=== PATIENT | female | born 1930 | race African-American/Black ===

== ENCOUNTER 2019-07-27 08:47 | Emergency (ER) | payer MEDICARE, BC ==
[~2019-07-27] VITALS: Ht 167.6 cm; Wt 63.5 kg
[~2019-07-27 08:47] MED LIST: ASPI325T8 PO; HYDR-2145 PO; HYDR-3135 PO; LOVA40TA2 PO; METO50TA6 PO; OMEP20CA16 PO
[2019-07-27] MEDS ORDERED: fentaNYL PF VIAL 100 MCG/2 ML VIAL IV ONE (09:30)
[2019-07-27] MEDS ORDERED: ACETAMINOPHEN 500 MG TABLET PO ONE (09:30)
[2019-07-27] MEDS ORDERED: IV NORMAL SALINE 500ML BAG 500 ML IV ONE (09:30)
[2019-07-27 09:38] LABS: BASO # 0.1 x10^3/uL (0.0-0.2); BASO % 1 % (0-3); EOS % 0 % (0-3); HEMATOCRIT 35.5 % (36.0-47.0); HEMOGLOBIN 11.8 g/dL (12.0-15.5); LYMPH # 0.9 x10^3/uL (1.0-4.8); LYMPH % 10 % (24-48); MEAN CORPUSCULAR HEMOGLOBIN 29 pg (25-35); MEAN CORPUSCULAR HGB CONC 33 g/dL (31-37); MEAN CORPUSCULAR VOLUME 88 fL (79-100); MONO # 1.2 x10^3/uL (0.0-1.1); MONO % 13 % (0-9); NEUT # 7.1 x10^3/uL (1.8-7.7); NEUT % 76 % (31-73); PLATELET COUNT 304 x10^3/uL (140-400); RED BLOOD COUNT 4.05 x10^6/uL (3.50-5.40); WHITE BLOOD COUNT 9.3 x10^3/uL (4.0-11.0)
--- NOTE | 2019-07-27 09:42 | PHYS DOC ---
Past Medical History Past Medical History: GERD, High Cholesterol, Hypertension Past Surgical History: Hip Replacement, Knee Replacement Additional Past Surgical Histo: hernia, knee replacement Alcohol Use: None Drug Use: None Adult General Chief Complaint Chief Complaint: Neck Pain HPI HPI Patient is a 88 year old female with a history of hypertension presenting with neck pain for the last 3 days it started on Friday described as a stiffness no trauma radiates to bilateral shoulder blades denies chest pain occasional cough did have a headache earlier on the weekend but does not have one now. Feels warm to the touch denies fever that she knows of no vomiting denies diarrhea normal urination normal bowel movement she tells me. She takes omeprazole she has been getting around okay. Review of Systems Review of Systems Constitutional: Eyes: Cardiovascular: No additional information not addressed in HPI [] GI: Denies abdominal pain, nausea, vomiting, bloody stools or diarrhea [] : Denies dysuria or hematuria [] Musculoskeletal: Integument: Denies rash or skin lesions [] Neurologic: Endocrine: Denies polyuria or polydipsia [] All other systems were reviewed and found to be within normal limits, except as documented in this note. Current Medications Current Medications Current Medications Medications (Trade) Dose Ordered Sig/Marla Start Time Stop Time Status Last Admin Dose Admin Acetaminophen (Tylenol) 1,000 mg 1X ONCE 07/27/19 09:30 07/27/19 09:31 DC 07/27/19 09:50 1,000 MG Fentanyl Citrate (Fentanyl 2ml Vial) 50 mcg 1X ONCE 07/27/19 09:30 07/27/19 09:31 DC 07/27/19 09:50 50 MCG Morphine Sulfate (Morphine Sulfate) 4 mg 1X ONCE 07/27/19 11:00 07/27/19 11:01 DC 07/27/19 11:18 4 MG Sodium Chloride 500 ml @ 500 mls/hr 1X ONCE 07/27/19 09:30 07/27/19 10:29 DC 07/27/19 09:48 500 MLS/HR Allergies Allergies Allergies Coded Allergies Type Severity Reaction Last Updated Verified No Known Drug Allergies 03/28/14 No Physical Exam Physical Exam Constitutional: Well developed, well nourished, no acute distress, non-toxic appearance. [] HENT: Normocephalic, atraumatic, bilateral external ears normal, oropharynx moist, no oral exudates, nose normal. [] Eyes: PERRLA, EOMI, conjunctiva normal, no discharge. Neck: mild stiffness but no reproducible ttp noted. no true nuchal rigidity there is some tightness noted of the trapezius muscles l greater than right. cv: mild tachy no murmur Lungs & Thorax: Bilateral breath sounds clear to auscultation [] Abdomen: Bowel sounds normal, soft, no tenderness, no masses, no pulsatile masses. [] Skin: Warm, dry, no erythema, no rash. [] Back:b/l ttp noted at the scapula areas. Extremities: No tenderness, no cyanosis, no clubbing, ROM intact, no edema. [] Neurologic: Alert and oriented X 3, normal motor function, normal sensory function, no focal deficits noted. [] Psychologic: Affect normal, judgement normal, mood normal. [] Current Patient Data Vital Signs Vital Signs Date Time Temp Pulse Resp B/P (MAP) Pulse Ox O2 Delivery O2 Flow Rate FiO2 07/27/19 11:27 104 20 147/79 (101) 99 Room Air 07/27/19 10:57 100.3 100.3 t 100.9 Lab Values Laboratory Tests Test 07/27/19 08:23 07/27/19 08:25 07/27/19 08:30 07/27/19 10:20 White Blood Count 9.3 x10^3/uL (4.0-11.0) Red Blood Count 4.05 x10^6/uL (3.50-5.40) Hemoglobin 11.8 g/dL (12.0-15.5) L Hematocrit 35.5 % (36.0-47.0) L Mean Corpuscular Volume 88 fL (79-100) Mean Corpuscular Hemoglobin 29 pg (25-35) Mean Corpuscular Hemoglobin Concent 33 g/dL (31-37) Red Cell Distribution Width 15.0 % (11.5-14.5) H Platelet Count 304 x10^3/uL (140-400) Neutrophils (%) (Auto) 76 % (31-73) H Lymphocytes (%) (Auto) 10 % (24-48) L Monocytes (%) (Auto) 13 % (0-9) H Eosinophils (%) (Auto) 0 % (0-3) Basophils (%) (Auto) 1 % (0-3) Neutrophils # (Auto) 7.1 x10^3/uL (1.8-7.7) Lymphocytes # (Auto) 0.9 x10^3/uL (1.0-4.8) L Monocytes # (Auto) 1.2 x10^3/uL (0.0-1.1) H Eosinophils # (Auto) 0.0 x10^3/uL (0.0-0.7) Basophils # (Auto) 0.1 x10^3/uL (0.0-0.2) Sodium Level 136 mmol/L (136-145) Potassium Level 4.1 mmol/L (3.5-5.1) Chloride Level 99 mmol/L (98-107) Carbon Dioxide Level 28 mmol/L (21-32) Anion Gap 9 (6-14) Blood Urea Nitrogen 23 mg/dL (7-20) H Creatinine 1.0 mg/dL (0.6-1.0) Estimated GFR (Cockcroft-Gault) 63.3 BUN/Creatinine Ratio 23 (6-20) H Glucose Level 131 mg/dL (70-99) H Lactic Acid Level 1.2 mmol/L (0.4-2.0) Calcium Level 9.9 mg/dL (8.5-10.1) Total Bilirubin 0.4 mg/dL (0.2-1.0) Aspartate Amino Transferase (AST) 36 U/L (15-37) Alanine Aminotransferase (ALT) 17 U/L (14-59) Alkaline Phosphatase 81 U/L (46-116) Troponin I Quantitative < 0.017 ng/mL (0.000-0.055) Total Protein 8.5 g/dL (6.4-8.2) H Albumin 2.7 g/dL (3.4-5.0) L Albumin/Globulin Ratio 0.5 (1.0-1.7) L Procalcitonin < 0.10 ng/mL (0.00-0.10) Influenza Type A Antigen Negative (NEGATIVE) Influenza Type B Antigen Negative (NEGATIVE) Group A Streptococcus Rapid Negative (NEGATIVE) Urine Collection Type Unknown Urine Color Yellow Urine Clarity Clear Urine pH 7.0 Urine Specific [place] 1.020 Urine Protein 100 mg/dL (NEG-TRACE) Urine Glucose (UA) Negative mg/dL (NEG) Urine Ketones (Stick) Negative mg/dL (NEG) Urine Blood Negative (NEG) Urine Nitrite Negative (NEG) Urine Bilirubin Negative (NEG) Urine Urobilinogen Dipstick 1.0 mg/dL (0.2 mg/dL) Urine Leukocyte Esterase Small (NEG) Urine RBC Occ /HPF (0-2) Urine WBC 5-10 /HPF (0-4) Urine Squamous Epithelial Cells Many /LPF Urine Bacteria Many /HPF (0-FEW) Urine Mucus Marked /LPF Laboratory Tests 07/27/19 08:23 Laboratory Tests 07/27/19 08:23 EKG EKG []Sinus rhythm rate 100 no STEMI no acute ischemia nonspecific changes lateral Radiology/Procedures Radiology/Procedures []XAM: PORTABLE CHEST 1V, CT CERVICAL SPINE WO CONTRAST INDICATION: Fever. TECHNIQUE: Single view COMPARISON: Abdomen CT 03/24/2018 FINDINGS: The heart size is borderline enlarged. The great vessels show aortic calcification and tortuosity. There is no hilar or mediastinal mass. Lungs show bibasilar linear atelectatic changes with left diaphragmatic elevation There is no pleural effusion or pneumothorax. Osteopenia and bilateral advanced bilateral glenohumeral degenerative change. IMPRESSION: Left diaphragmatic elevation and bibasilar atelectasis. No acute cardiopulmonary process otherwise shown. EXAM: CT Cervical Spine without IV contrast INDICATION: Neck pain, no trauma TECHNIQUE: Multi-detector row CT images were obtained through the cervical spine without the use of IV contrast. Post-processing sagittal and coronal reconstructed images were obtained for interpretation. All CT scans performed at this facility utilize dose optimization techniques as appropriate to the exam, including the following: Automated exposure control and adjustment of the mA and/or KV according to patient size (this includes techniques or standardized protocols for targeted exams where dose is indication/reason for exam). DLP 172.1 mGycm COMPARISON: None FINDINGS: CRANIOCERVICAL JUNCTION: Unremarkable. ALIGNMENT: Alignment is within normal limits. OSSEOUS: No evidence of fracture or bone destruction. DISC SPACES: Multilevel disc degenerative change as evidenced by disc space narrowing and endplate osteophytic spurring is noted. FACET JOINTS: Multilevel facet hypertrophic changes present, most conspicuous on the right at C5-C6 and on the left at C3-C4. 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 No significant central canal narrowing is evident. NEUROFORAMINA: There are varying degrees of foraminal stenosis due to endplate osteophytic spurring and disc space narrowing throughout the cervical spine. SOFT TISSUES: Unremarkable. IMPRESSION: Multilevel cervical degenerative spondylosis. No acute cervical spine pathology. Electronically signed by: aLy Parnell MD (07/27/2019 9:58 AM) [facility] DICTATED and SIGNED BY: LAY PARNELL MD DATE: 07/27/19 0958 Course & Med Decision Making Course & Med Decision Making Pertinent Labs and Imaging studies reviewed. (See chart for details) []This is a fairly healthy 88-year-old female with a history of hypertension is presenting with a fever of 100.9 for the last 3-4 days with some upper back and neck pain. Overall she is well-appearing with a normal neurologic exam there is no appreciable weakness identified. No bowel or bladder incontinence by history no significant risk factors for central nervous system bacterial infection no headache alert responsive no evidence of meningitis clinically. At this point time plan for usual emergency room workup CT of the C-spine to rule out occult fracture given age chest x-ray urinalysis labs IV fluids and treat symptoms and go from there. Check influenza check rapid strep Final plan: Patient had some relief not complete relief but improved with the above medications. Patient remained neurologically intact ER workup was essentially negative. Noted possible UTI this was a dirty sample I think it's reasonable to give some antibiotics given her fever. Flu swab strep pro calcitonin lactic acid chest x-ray white blood cell count within normal limits. Patient has no central spine tenderness it's mostly bilateral paraspinous. Patient does not have a headache in the emergency room she is alert and at her baseline mental status she is quite responsive and following commands she has been sick for several days. I really don't think this patient has meningitis I talked in detail with the patient's family about the likely diagnosis the risks and benefits of further testing including lumbar puncture and we both agreed that the risk of the procedure likely would outweigh any benefit given the extremely low pretest probability. I suspect patient is a viral syndrome causing myalgias upper back and some neck pain. She has no risk factors to increase risk for any central nervous system pathology. At this time we'll discharge the patient home trial of muscle relaxants I talked with patient's family about the importance of not taking this with hydrocodone and watching out for any falls take it at night they live with the patient will watch her very closely. In addition Keflex for possible UTI I also noted to them that cultures are pending at this time. Return precautions discussed in detail and they're comfortable taking the patient home. Dragon Disclaimer Dragon Disclaimer This electronic medical record was generated, in whole or in part, using a voice recognition dictation system. Departure Departure Impression: Primary Impression: Neck pain Disposition: HOME, SELF-CARE Condition: STABLE Referrals: PJ WASHINGTON MD (PCP) Scripts Cephalexin (CEPHALEXIN) 500 Mg Capsule 1 CAP PO QID, #40 CAP Prov: NORTH SQUIRES MD 07/27/19 Cyclobenzaprine Hcl (CYCLOBENZAPRINE HCL) 5 Mg Tablet 5 MG PO PRN TID PRN for PAIN, #8 TAB DO NOT TAKE WITHIN 4 HOURS OF NORCO. PLEASE TAKE UNDER DIRECT SUPERVISION OF FAMILY MEMBERS TO REDUCE RISK OF FALLS. Prov: NORTH SQUIRES MD 07/27/19 NORTH SQUIRES MD Jul 27, 2019 09:42
[2019-07-27 09:54] LABS: CALCIUM 9.9 mg/dL (8.5-10.1); GFR 63.3; POTASSIUM 4.1 mmol/L (3.5-5.1)
--- NOTE | 2019-07-27 09:54 | EKG ---
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
[2019-07-27 10:00] LABS: ALBUMIN 2.7 g/dL (3.4-5.0); ALBUMIN/GLOBULIN RATIO 0.5 (1.0-1.7); TOTAL BILIRUBIN 0.4 mg/dL (0.2-1.0); TOTAL PROTEIN 8.5 g/dL (6.4-8.2)
--- NOTE | 2019-07-27 10:01 | RAD ---
EXAM: PORTABLE CHEST 1V, CT CERVICAL SPINE WO CONTRAST INDICATION: Fever. TECHNIQUE: Single view COMPARISON: Abdomen CT 03/24/2018 FINDINGS: The heart size is borderline enlarged. The great vessels show aortic calcification and tortuosity. There is no hilar or mediastinal mass. Lungs show bibasilar linear atelectatic changes with left diaphragmatic elevation There is no pleural effusion or pneumothorax. Osteopenia and bilateral advanced bilateral glenohumeral degenerative change. IMPRESSION: Left diaphragmatic elevation and bibasilar atelectasis. No acute cardiopulmonary process otherwise shown. EXAM: CT Cervical Spine without IV contrast INDICATION: Neck pain, no trauma TECHNIQUE: Multi-detector row CT images were obtained through the cervical spine without the use of IV contrast. Post-processing sagittal and coronal reconstructed images were obtained for interpretation. All CT scans performed at this facility utilize dose optimization techniques as appropriate to the exam, including the following: Automated exposure control and adjustment of the mA and/or KV according to patient size (this includes techniques or standardized protocols for targeted exams where dose is indication/reason for exam). DLP 172.1 mGycm COMPARISON: None FINDINGS: CRANIOCERVICAL JUNCTION: Unremarkable. ALIGNMENT: Alignment is within normal limits. OSSEOUS: No evidence of fracture or bone destruction. DISC SPACES: Multilevel disc degenerative change as evidenced by disc space narrowing and endplate osteophytic spurring is noted. FACET JOINTS: Multilevel facet hypertrophic changes present, most conspicuous on the right at C5-C6 and on the left at C3-C4. 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 No significant central canal narrowing is evident. NEUROFORAMINA: There are varying degrees of foraminal stenosis due to endplate osteophytic spurring and disc space narrowing throughout the cervical spine. SOFT TISSUES: Unremarkable. IMPRESSION: Multilevel cervical degenerative spondylosis. No acute cervical spine pathology. Electronically signed by: Karen Parnell MD (07/27/2019 9:58 AM) [facility]
[2019-07-27 10:18] LABS: INFLUENZA A PATIENT NEGATIVE (NEGATIVE); INFLUENZA B PATIENT NEGATIVE (NEGATIVE)
[2019-07-27 10:37] LABS: BILIRUBIN,URINE NEGATIVE (NEG); CLARITY,URINE CLEAR; COLOR,URINE YELLOW; NITRITE,URINE NEGATIVE (NEG); PROTEIN,URINE 100 mg/dL (NEG-TRACE)
[2019-07-27 10:54] LABS: BACTERIA,URINE MANY /HPF (0-FEW); RBC,URINE OCC /HPF (0-2); SQUAMOUS EPITHELIAL CELL,UR MANY /LPF
[2019-07-27] MEDS ORDERED: MORPHINE SULFATE 4 MG/ML VIAL. IV ONE (11:00)
[2019-07-27 11:27] VITALS: BP 147/79
[2019-07-27] MEDS ORDERED: CYCL5TAB PO (11:39)
[2019-07-27] MEDS ORDERED: CEPH500C PO (11:39)
== END 2019-07-27 11:50 | disposition home or self-care (01) ==
LOC: ER 08:47
DX: M54.2 Cervicalgia (principal); R51 Headache; M25.611 Stiffness of right shoulder, not elsewhere classified; M25.612 Stiffness of left shoulder, not elsewhere classified; E78.00 Pure hypercholesterolemia, unspecified; I10 Essential (primary) hypertension; K21.9 Gastro-esophageal reflux disease without esophagitis
CPT/HCPCS: 36415; 71045; 72125; 80053; 81001; 83605; 84145; 84484; 85025; 87040; 87070; 87086; 87804; 87880; 93005; 96374; 96375; 99285; J2270; J3010; J7040; 96361